=== PATIENT | female | born 1975 | race Two or more races ===

== ENCOUNTER 2020-03-27 16:45 | Emergency (ER) | payer MEDICAID ==
[~2020-03-27] VITALS: Ht 142.2 cm; Wt 65.9 kg
[2020-03-27 16:56] VITALS: BP 101/59
[2020-03-27] MEDS ORDERED: IBUP-1984 PO (19:41)
== END 2020-03-27 19:47 | disposition home or self-care (01) ==
LOC: ER 16:47
DX: S80.812A Abrasion, left lower leg, initial encounter (principal); Z79.899 Other long term (current) drug therapy; W18.39XA Other fall on same level, initial encounter; Y93.89 Activity, other specified; Y92.89 Other specified places as the place of occurrence of the external cause; Y99.8 Other external cause status
CPT/HCPCS: 99282